=== PATIENT | female | born 1950 | race Caucasian/White ===

== ENCOUNTER → 2019-10-06 | Outpatient (CLI) | payer OTHER ==
[~2019-10-06] MED LIST: ACEB200; ATOR10; CLON1 PO; CONEST.3; FLUO20; HYDACE5; LORA1; LORA1 PO; OXYACE5T PO; PARO30; PROM25 PO; RXHYDACE PO; SULTRIDS PO
== END | disposition home or self-care (01) ==
LOC: LAB UCHC 15:00 → LAB SHORT 15:00
DX: N39.0 Urinary tract infection, site not specified (principal)
CPT/HCPCS: 87077; 87086; 87186

== ENCOUNTER → 2020-07-09 | Outpatient (CLI) | payer OTHER | END | disposition home or self-care (01) | LOC: LAB SHORT 15:43 → LAB 15:43 | DX: N39.0 Urinary tract infection, site not specified (principal) | CPT/HCPCS: 87077; 87086; 87186 ==

== ENCOUNTER → 2021-09-01 | Outpatient (CLI) | payer OTHER | END | disposition home or self-care (01) | LOC: LAB SHORT 14:56 | DX: D48.5 Neoplasm of uncertain behavior of skin (principal) | CPT/HCPCS: 88305 ==

== ENCOUNTER 2022-12-18 11:54 | Day surgery (SDC) | payer OTHER ==
[~2022-12-18] VITALS: Ht 170.2 cm; Wt 65.7 kg
[~2022-12-18 11:54] MED LIST changes: +ALPR.5 PO; +CYCL0.05OP; +LOSA25 PO; +RELPAX PO
[2022-12-18] MEDS ORDERED: PREMPRO (12:45)
[2022-12-18] MEDS ORDERED: Percocet 5-3251 EACH PO (12:45)
[2022-12-18] MEDS ORDERED: ALPR.5 PO (12:46)
--- NOTE | 2022-12-18 13:21 | NUR ---
History, Chart, Medications and Allergies reviewed before start of procedure. Lungs clear T/O to Auscultation. Patient confirms NPO status and agrees with scheduled surgery. Pre-Op teaching done. Pt verbalizes understanding. Patient reports completing Chlorhexadine shower X2 prior to admission to hospital.
--- NOTE | 2022-12-18 19:40 | NUR ---
SHIFT SUMMARY PT A&OX4/ANXIOUS/NEEDS REASSURANCE-RESPONDS WELL, VSS/RA, TERI PO, AWAITING POST OP VOID, DENIES PAIN. S/P R TKA, AQUACEL CDI, SLIGHTLY MOVES BLE. REPORT TO SELENA HE.
--- NOTE | 2022-12-19 05:16 | NUR ---
SHIFT SUMMARY POD1 R TKA WITH AQUACEL DRESSING, REMAINED CDI. VSS. DENIES CP AND SOB. DENIES DIZZINESS. PT HAS BEEN SHAKY INTERMITTENTLY, ESPECIALLY WHEN SHE FIRST GOT UP. PT REPORTS SHE HAS BEEN ANXIOUS ALL NIGHT. XANAX GIVEN TWICE T/O SHIFT WHICH HELPED. VOIDING. PT REPORTS MODERATE PAIN TO MINIMAL. PAIN MANAGED WITH OXYCODONE 10MG AND TYLENOL. POLAR PACK, ALISHA ALVAREZ AND SCD. TOLERATING PO INTAKE. DENIES NAUSEA AND VOMITING. CALL LIGHT WITHIN REACH. WILL PROVIDE REPORT TO ONCOMING NURSE.
[2022-12-19 06:00] LABS: BASOPHILS ABSOLUTE AUTO 0.02 K/mm3 (0.00-0.23); BASOPHILS PERCENT AUTO 0 % (0-2); EOSINOPHILS PERCENT AUTO 0 % (0-6); Hematocrit 36.2 % (33.0-51.0); Hemoglobin 12.3 g/dL (11.5-16.0); IMMATURE GRAN ABSOLUTE AUTO 0.06 K/mm3 (0.00-0.10); IMMATURE GRAN PERCENT AUTO 0 % (0-1); LYMPHOCYTES ABSOLUTE AUTO 0.96 K/mm3 (0.84-5.20); LYMPHOCYTES PERCENT AUTO 6 % (21-46); MONOCYTES ABSOLUTE AUTO 0.96 K/mm3 (0.16-1.47); MONOCYTES PERCENT AUTO 6 % (4-13); Mean Corpuscular HGB 30.2 pg (26.0-34.0); Mean Corpuscular Volume 89 fL (80-100); Mean Platelet Volume 9.3 fL (9.1-12.4); NEUTROPHILS ABSOLUTE AUTO 14.51 K/mm3 (1.96-9.15); NEUTROPHILS PERCENT AUTO 88 % (41-73); Platelet Count 198 K/mm3 (150-400); RDW Coefficient Variation 12.5 % (11.7-14.2); RDW Standard Deviation 41.1 fL (35.1-46.3); Red Blood Cell Count 4.07 M/mm3 (3.80-5.20); White Blood Cell Count 16.51 K/mm3 (4.00-11.30)
[2022-12-19 06:30] LABS: Magnesium, Blood 1.8 mg/dL (1.6-2.4)
[2022-12-19 06:31] LABS: Bun/Creatinine Ratio 17.7 (12.0-20.0); Calcium, Blood 8.2 mg/dL (8.5-10.1); Creatinine, Blood 0.68 mg/dL (0.40-1.00); Potassium, Blood 4.1 mmol/L (3.5-5.5)
[2022-12-19] MEDS ORDERED: ASPI81CH PO (08:08)
[2022-12-19] MEDS ORDERED: OXYC5 PO (08:09)
[2022-12-19] MEDS ORDERED: ACET500 PO (08:09)
[2022-12-19] MEDS ORDERED: SULTRIDS PO (08:10)
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
--- NOTE | 2022-12-19 11:48 | NUR ---
DISCHARGE NOTE TOOK PT IN W/C TO THE PT ENTRANCE AND ASSISTED HER IN TRANSFERRING FROM THE W/C INTO HER NEPHEW'S VEHICLE. PROVIDED THE NEPHEW EDUCATION ON S/SX OF INFECTION AND HOW TO AMBULATE HER OUT OF THE VEHICLE USING A GAIT BELT.
== END 2022-12-19 11:39 | disposition home or self-care (01) ==
LOC: ORSCMMR 11:54 → ORD 15:30 → ORSCMMR 15:30 → ORD 16:00 → SURS 17:14 → ORSCMMR 12-19 11:39
PROVIDERS: Orthopaedic Surgery
PROC: 8E0Y0CZ Robotic Assisted Procedure of Lower Extremity, Open Approach (ICD-10-PCS; principal; 2022-12-18 14:30)
PROC: 0SRC0JA Replacement of Right Knee Joint with Synthetic Substitute, Uncemented, Open Approach (ICD-10-PCS; principal; 2022-12-18 14:30)
DX: M17.11 Unilateral primary osteoarthritis, right knee (principal); I10 Essential (primary) hypertension; K21.9 Gastro-esophageal reflux disease without esophagitis; Z79.899 Other long term (current) drug therapy
CPT/HCPCS: 27447; 0055T; S2900; 36415; 73560-RT; 80048; 83735; 85025; 97110; 97116; 97162; 97530; A9270; C1776; J0171; J0690; J0735; J1100; J2250; J2405; J2704; J2795; J3010; J3370; J7050; J7120

== ENCOUNTER → 2023-05-15 | Outpatient (CLI) | payer OTHER ==
[~2023-05-15] MED LIST changes: +ACET500 PO; +ASPI81CH PO; +OXYC5 PO; +PREMPRO; +Percocet 5-3251 EACH PO
[2023-05-15 16:16] LABS: Source, Urine Clean Catch
[2023-05-15 19:14] LABS: Appearance, Urine Clear (Clear); Bilirubin, Urine Neg (Neg); Blood, Urine 1+ (Neg); Color, Urine Yellow (P-Yellow); Glucose Qualitative, Urine Neg (Neg); Ketones, Urine Neg (Neg); Leukocyte Esterase, Urine Neg (Neg); Nitrite, Urine Neg (Neg); Protein, Urine Neg (Neg); Specific Gravity, Urine 1.015 (1.003-1.022); Urobilinogen, Urine NORM (Normal); pH, Urine 6.5 (5.0-8.0)
[2023-05-15 19:22] LABS: Amorphous Light (0-Heavy); Bacteria Rare /hpf; Red Blood Cells, Urine 0-2 /hpf (0-2); Squamous Epithelial Cells Few /hpf (Few); White Blood Cells, Urine 0-2 /hpf (0-5)
== END | disposition home or self-care (01) ==
LOC: LAB SHORT 16:15 → LAB 16:15
PROVIDERS: Family Medicine
DX: R39.15 Urgency of urination (principal)
CPT/HCPCS: 81001

== ENCOUNTER → 2025-01-28 | Outpatient (CLI) | payer OTHER ==
[2025-01-28 14:53] LABS: Hemoglobin 15.7 g/dL (11.5-16.0); Mean Corpuscular HGB 29.9 pg (26.0-34.0); Mean Corpuscular HGB Conc 33.4 g/dL (31.5-36.5); Mean Corpuscular Volume 90 fL (80-100); RDW Coefficient Variation 12.5 % (11.7-14.2); RDW Standard Deviation 41.2 fL (35.1-46.3); Red Blood Cell Count 5.25 M/mm3 (3.80-5.20)
[2025-01-28 19:32] LABS: Alanine Aminotransfer (ALT/SGP 18 U/L (12-78); Albumin, Blood 3.6 g/dL (3.4-5.0); Albumin/Globulin Ratio 1.2 (0.8-1.8); Alk Phos 83 U/L (50-136); Anion Gap 11 mmol/L (3-11); Aspartate Aminotrans (AST/SGOT 17 U/L (12-37); Bilirubin, Total 0.6 mg/dL (0.1-1.0); Blood Urea Nitrogen 10 mg/dL (8-24); Bun/Creatinine Ratio 12.6 (12.0-20.0); CHOL/HDL RATIO 3.1; CO2, Blood 25 mmol/L (21-32); Calcium, Blood 8.9 mg/dL (8.5-10.1); Chloride, Blood 109 mmol/L (98-108); Cholesterol 245 mg/dL (50-200); Creatinine, Blood 0.79 mg/dL (0.40-1.00); Globulin, Blood 2.9 g/dL (2.2-4.0); Glomerular Filtration Rate 79 (60-); Glucose, Blood 84 mg/dL (70-99); HDL Cholesterol 78 mg/dL (>39); LDL/HDL RATIO 1.9; Low Density Lipoprotein Chol 150 mg/dL (0-110); Sodium, Blood 141 mmol/L (136-145); Total Protein, Blood 6.5 g/dL (6.4-8.2); Triglycerides 86 mg/dL (30-160); Very Low Density Lipoprot Chol 17 mg/dL (6-32)
== END ==
LOC: LAB SHORT 08:30 → LAB 08:30
PROVIDERS: Internal Medicine
DX: I10 Essential (primary) hypertension (principal); M81.0 Age-related osteoporosis without current pathological fracture
CPT/HCPCS: 80053; 80061; 82306; 85027

== ENCOUNTER → 2025-07-31 | Outpatient (CLI) | payer OTHER ==
[2025-07-31 15:11] LABS: C-REACTIVE PROTEIN, EXT RANGE <0.290 mg/dL (0.000-0.300)
[2025-07-31 15:13] LABS: Alanine Aminotransfer (ALT/SGP 18 U/L (12-78); Albumin, Blood 3.5 g/dL (3.4-5.0); Albumin/Globulin Ratio 1.2 (0.8-1.8); Anion Gap 7 mmol/L (3-11); Aspartate Aminotrans (AST/SGOT 14 U/L (12-37); Bilirubin, Total 0.3 mg/dL (0.1-1.0); Blood Urea Nitrogen 11 mg/dL (8-24); CO2, Blood 28 mmol/L (21-32); Calcium, Blood 9.0 mg/dL (8.5-10.1); Chloride, Blood 107 mmol/L (98-108); Creatinine, Blood 0.72 mg/dL (0.40-1.00); Globulin, Blood 2.9 g/dL (2.2-4.0); Glucose, Blood 79 mg/dL (70-99); Potassium, Blood 4.1 mmol/L (3.5-5.5); Sodium, Blood 138 mmol/L (136-145); Total Protein, Blood 6.4 g/dL (6.4-8.2)
[2025-08-02 22:54] LABS: ANTI-NUCLEAR AB ANA,IGG ELISA None Detected (None Detected)
[2025-08-02 23:00] LABS: SSA-52 (RO52) (ENA) AB, IGG 1 AU/mL (0-40); SSA-60 (RO60) (ENA) AB, IGG 0 AU/mL (0-40); SSB (LA) (ENA) ANTIBODY, IGG 0 AU/mL (0-40)
== END ==
LOC: LAB 11:45 → LAB SHORT 11:45
PROVIDERS: Internal Medicine
DX: R68.2 Dry mouth, unspecified (principal); I10 Essential (primary) hypertension
CPT/HCPCS: 80053; 85651; 86038; 86140; 86235

== ENCOUNTER → 2025-09-04 | Outpatient (CLI) | payer OTHER | LOC: LAB 13:58 → LAB SHORT 13:58 | DX: N39.0 Urinary tract infection, site not specified (principal) | CPT/HCPCS: 87086 ==